=== PATIENT | female | born 1970 | race Caucasian/White ===

== ENCOUNTER 2019-07-09 08:54 | Emergency (ER) | payer MEDICAID, OTHER ==
[~2019-07-09] VITALS: Ht 167.6 cm; Wt 95.0 kg
[2019-07-09 09:40] LABS: BASOPHILS % 0.5 % (0.0-2.0); EOSINOPHILS % 0.1 % (0.0-5.0); HEMATOCRIT. 41.9 % (36.0-48.0); HEMOGLOBIN. 14.2 g/dL (12.0-16.0); LYMPHOCYTES % 30.7 % (20.0-50.0); MEAN CORPUSCULAR HEMOGLOBIN 28.5 pg (28.0-32.0); MEAN CORPUSCULAR VOLUME 84.3 fL (81.0-99.0); MEAN PLATELET VOLUME 7.7 fl (7.4-10.4); MONOCYTES % 5.8 % (2.0-8.0); NEUTROPHILS % 62.9 % (40.0-76.0); PLATELET 335 x1000/uL (130-400); RED BLOOD CELL COUNT 4.97 mill/uL (4.2-5.4)
[2019-07-09 09:45] LABS: CHLORIDE 107 mEq/L (98-107)
[2019-07-09 09:48] LABS: ETHANOL BLOOD < 10 mg/dL
[2019-07-09] MEDS ORDERED: ASPIRIN 325MG EC TABLET PO ONE (10:15)
[2019-07-09 13:36] VITALS: BP 136/77
== END 2019-07-09 14:13 | disposition short-term general hospital (02) ==
LOC: ER 08:54 → CANBEDREQ 10:35 → ER 14:13
DX: I63.89 Other cerebral infarction (principal); G81.91 Hemiplegia, unspecified affecting right dominant side; R29.810 Facial weakness; E87.6 Hypokalemia; R00.1 Bradycardia, unspecified
CPT/HCPCS: 36415; 71045; 80320; 93005; 99285; G0480